=== PATIENT | male | born 1995 | race Caucasian/White ===

== ENCOUNTER 2018-10-21 12:52 | Emergency (ER) | payer OTHER ==
[~2018-10-21] VITALS: Ht 170.2 cm; Wt 99.8 kg
[2018-10-21] MEDS ORDERED: MOTRIN200 MG PO (13:04)
[2018-10-21] MEDS ORDERED: CLINDAMYCIN HC300 MG PO (13:04)
== END 2018-10-21 13:15 | disposition home or self-care (01) ==
LOC: ER 12:52
DX: K04.7 Periapical abscess without sinus (principal); K02.9 Dental caries, unspecified
CPT/HCPCS: 99282